=== PATIENT | male | born 1960 | race African-American/Black ===

== ENCOUNTER 2020-06-10 20:27 | Emergency (ER) | payer OTHER ==
[2020-06-10 20:37] VITALS: BMI 34.9
[2020-06-10 22:36] LABS: BASO % 0.3 % (0-2.0); EOS % 0.2 % (0-4.5); HEMATOCRIT 41.9 % (35.4-49); HEMOGLOBIN 13.5 GM/dL (11.7-16.9); LYMPH % 11.3 % (8-40); MCH 22.4 pg (25.7-33.7); MCHC 32.3 g/dl (32.0-35.9); MEAN CELL VOLUME 69.3 fl (80-96); MEAN PLT VOLUME 8.6 fl (7.5-11.1); MONO % 4.2 % (3.8-10.2); PLATELET COUNT 223 K/MM3 (134-434); RBC 6.04 M/mm3 (4.00-5.60)
[2020-06-10 22:43] LABS: INR 1.11 (0.83-1.09); PROTHROMBIN TIME (PATIENT) 13.4 SEC (9.7-13.0)
[2020-06-10 22:46] LABS: ACTIVATED PTT 28.7 SECONDS (25.2-36.5)
[2020-06-10 23:06] LABS: CHLORIDE 106 mmol/L (98-107); SODIUM 140 mmol/L (136-145)
[2020-06-10 23:08] LABS: ALBUMIN 3.7 g/dl (3.4-5.0); ANION GAP 6 MMOL/L (8-16); BLOOD UREA NITROGEN 9.1 mg/dL (7-18); CALCIUM 9.1 mg/dL (8.5-10.1); CO2 28 mmol/L (21-32); GLUCOSE,RANDOM 90 mg/dL (74-106)
[2020-06-10 23:11] VITALS: BP 136/85; PULSE 80; TEMP 98.4
[2020-06-10 23:11] LABS: CREATININE 0.9 mg/dL (0.55-1.3); SGPT/ALT 18 U/L (13-61)
[2020-06-10 23:12] LABS: SGOT/AST 20 U/L (15-37)
[2020-06-10 23:13] LABS: BILIRUBIN,TOTAL 0.6 mg/dL (0.2-1); TOT PROT 7.1 g/dl (6.4-8.2)
[2020-06-10 23:14] LABS: ALK PHOS 84 U/L (45-117)
[2020-06-11 00:02] LABS: METHADONE, UR NEGATIVE ng/ml (CUTOFF=300); PHENCYCLIDINE,URINE NEGATIVE ng/ml (CUTOFF=25); URINE BARBITURATES NEGATIVE ng/ml (CUTOFF=200); URINE BENZODIAZEPINES NEGATIVE ng/ml (CUTOFF=200)
[2020-06-11 00:03] LABS: PH,URINE 5.5 (5.0-8.0); URINE AMPHETAMINES NEGATIVE ng/ml (CUTOFF=500); URINE APPEARANCE CLEAR; URINE BILIRUBIN NEGATIVE (NEGATIVE); URINE COLOR YELLOW; URINE GLUCOSE (UA) NEGATIVE (NEGATIVE); URINE KETONE NEGATIVE (NEGATIVE); URINE LEUK ESTERASE NEGATIVE (NEGATIVE); URINE NITRITE NEGATIVE (NEGATIVE); URINE PROTEIN TRACE (NEGATIVE)
[2020-06-11 00:05] LABS: OPIATES, URI NEGATIVE ng/ml (CUTOFF=300)
[2020-06-11 00:08] LABS: COCAINE, UR NEGATIVE ng/ml (CUTOFF=300)
== END 2020-06-11 02:01 | disposition home or self-care (01) ==
LOC: JER 20:27
DX: R42 Dizziness and giddiness (principal)
CPT/HCPCS: 36415; 71046-TC-FY; 80053; 80307; 81003; 84484; 85025; 85610; 85730; 93005; 93010; 99285-25